=== PATIENT | female | born 1985 | race Caucasian/White ===

== ENCOUNTER 2019-04-03 16:52 | Emergency (ER) | payer BC ==
[2019-04-03 17:16] VITALS: BP 98/68; PULSE 80; TEMP 98.2; BMI 19.5
--- NOTE | 2019-04-03 18:34 | PDOC ---
Documentation entered by Zeb Mladonado SCRIBE, acting as scribe for David Rodriguez MD. David Rodriguez MD: This documentation has been prepared by the dominikeJoel Aiswarya, SCRIBE, under my direction and personally reviewed by me in its entirety. I confirm that the documentation accurately reflects all work, treatment, procedures, and medical decision making performed by me. History of Present Illness - General Chief Complaint: Foreign Body (FB) Stated Complaint: SWALLOWED A FISH BONE History Source: Patient Exam Limitations: No Limitations - History of Present Illness Initial Comments: 04/03/19 17:15 The patient is a 33 year old female, with no significant PMH, who presents to the emergency department for evaluation of a fishbone stuck in her throat that occurred this afternoon. The patient states she had fish this afternoon and now experiences mild discomfort when swallowing. The patient denies chest pain, shortness of breath, headache and dizziness.Denies fever, chills, nausea, vomiting, diarrhea and constipation. Allergies: NKDA Past surgical history: None reported Social history: None reported PCP: None reported Past History - Past Medical History Allergies/Adverse Reactions: Allergies Allergy/AdvReac Type Severity Reaction Status Date / Time No Known Allergies Allergy Verified 04/03/19 17:11 Review of Systems - Review of Systems Able to Perform ROS?: Yes Comments:: 04/03/19 17:16 GENERAL/CONSTITUTIONAL: No fever or chills. No weakness. HEAD, EYES, EARS, NOSE AND THROAT: +throat pain. No change in vision. No ear pain or discharge. CARDIOVASCULAR: No chest pain or shortness of breath. RESPIRATORY: No cough, wheezing, or hemoptysis. SKIN: No rash NEUROLOGIC: No headache, vertigo, loss of consciousness, or change in strength/ sensation. ENDOCRINE: No increased thirst. No abnormal weight change. HEMATOLOGIC/LYMPHATIC: No anemia, easy bleeding, or history of blood clots. ALLERGIC/IMMUNOLOGIC: No hives or skin allergy. *Physical Exam - Physical Exam 04/03/19 17:38 GENERAL: Awake, alert, and fully oriented, in no acute distress ENT: Auricles normal inspection, hearing grossly normal, nares patent, oropharynx clear without exudates. Moist mucosa NECK: Normal ROM, supple, no lymphadenopathy, JVD, or masses LUNGS: Breath sounds equal, clear to auscultation bilaterally. No wheezes, and no crackles HEART: Regular rate and rhythm, normal S1 and S2, no murmurs, rubs or gallops NEUROLOGICAL: Cranial nerves II through XII grossly intact. Normal speech, SKIN: Warm, Dry, normal turgor, no rashes or lesions noted. Medical Decision Making - Medical Decision Making 04/03/19 18:35 r/o esophagel fish bone Discharge - Discharge Information Problems reviewed: Yes Clinical Impression/Diagnosis: Sensation of foreign body Condition: Good - Follow up/Referral Referrals: Maira Daniel MD [Primary Care Provider] - - Patient Discharge Instructions - Post Discharge Activity
--- NOTE | 2019-04-03 19:35 | PDOC ---
*Physical Exam - Vital Signs Last Vital Signs Temp Pulse Resp BP Pulse Ox 98.2 F 80 16 98/68 99 04/03/19 16:54 04/03/19 16:54 04/03/19 16:54 04/03/19 16:54 04/03/19 16:54 ED Progress Note - Progress Note Progress Note: 04/03/19 19:33 Bertha patient was transferred to hi from Dr. Rodriguez at 1900 hrs. Patient is a 33-year-old female who comes in complaining of a sensation that a fishbone stuck in her throat. Patient had a CAT scan that was read as no visualized soft tissue structures with any noncontrast pathology no radiopaque foreign body identified. Patient reassured that this most likely is secondary to a abrasion Patient discharged told to follow-up with ENT if symptoms persisted for more than 48 hours Discharge - Discharge Information Problems reviewed: Yes Clinical Impression/Diagnosis: Sensation of foreign body Condition: Good Disposition: HOME - Admission No - Follow up/Referral Referrals: Maira Daniel MD [Primary Care Provider] - - Patient Discharge Instructions Additional Instructions: Tylenol as needed for pain. Follow-up with an ENT next week if you still have any discomfort. Your CAT scan was negative for any foreign body in your throat area. Return to the emergency department immediately with ANY new, persistent or worsening symptoms. Continue any medications as previously prescribed by your physician. You should follow up with your primary doctor as soon as possible regarding today's emergency department visit. . Please make sure your doctor reviews the results of your emergency evaluation. Thank you for coming to the Emergency Department today for your care. It was a pleasure to see you today. Please note that your evaluation is INCOMPLETE until you follow-up with your doctor. - Post Discharge Activity
== END 2019-04-03 19:40 | disposition home or self-care (01) ==
LOC: FER 16:52
DX: R09.89 Other specified symptoms and signs involving the circulatory and respiratory systems (principal)
CPT/HCPCS: 70490-TC; 99282-25

== ENCOUNTER 2021-02-13 17:19 | Emergency (ER) | payer BC, OTHER ==
[2021-02-13 17:31] VITALS: BP 99/59; PULSE 84; TEMP 98.2; BMI 19.8
== END 2021-02-13 18:34 | disposition home or self-care (01) ==
LOC: FER 17:19
DX: R06.02 Shortness of breath (principal)
CPT/HCPCS: 71046-TC-FY; 81025; 93005; 99285-25